=== PATIENT | male | born 1950 | race Caucasian/White ===

== ENCOUNTER 2021-10-19 01:49 | Emergency (ER) | payer OTHER ==
[~2021-10-19] VITALS: Ht 170.2 cm; Wt 91.4 kg
--- NOTE | 2021-10-19 02:16 | PHYS DOC ---
Past History Past Surgical History: Other Adult General Chief Complaint Chief Complaint: MECHANICAL FALL HPI HPI Patient is a 71-year-old male with a past medical history of Parkinson's who presents the emergency department with his after slipping in the bathtub an d sliding down the wall landing in the corner. states she was in there with him and he did not lose consciousness and was able to help get them out. States he is able to walk at baseline. States she is worried he hit his head. Patient is nonverbal but shakes his head yes and no. Denies any pain. Denies any numbness/weakness/tingling. Review of Systems Review of Systems Review of systems otherwise unremarkable except noted in HPI Allergies Allergies Allergies Coded Allergies Type Severity Reaction Last Updated Verified No Known Drug Allergies 10/19/21 No Physical Exam Physical Exam Constitutional: Well developed, well nourished, no acute distress, non-toxic appearance. [] HENT: Normocephalic, atraumatic, oropharynx moist, no oral exudates, nose normal. [] Eyes: PERRLA, EOMI, conjunctiva normal, no discharge. [] Cardiovascular:Heart rate regular rhythm, no murmur [] Lungs & Thorax: Bilateral breath sounds clear to auscultation [] Abdomen: Bowel sounds normal, soft, no tenderness, no masses, no pulsatile masses. [] Skin: Warm, dry, no erythema, no rash. [] Back: No midline tenderness throughout spine with no paraspinal muscle tenderness or spasm, no step-offs, deformities or bruising noted Extremities: No tenderness, no cyanosis, no clubbing, ROM intact, no edema. [] Neurologic: Alert and oriented X 3, normal motor function, normal sensory function, able to sit, stand and walk at baseline per no focal deficits noted. [] Psychologic: Affect normal, judgement normal, mood normal. [] Current Patient Data Vital Signs Vital Signs Date Time Temp Pulse Resp B/P (MAP) Pulse Ox O2 Delivery O2 Flow Rate FiO2 10/19/21 01:56 98.2 89 111/55 (73) 90 EKG EKG [] Radiology/Procedures Radiology/Procedures [] Heart Score C/O Chest Pain: No Risk Factors: Risk Factors: DM, Current or recent (<one month) smoker, HTN, HLP, family history of CAD, obesity. Risk Scores: Risk Factors: DM, Current or recent (<one month) smoker, HTN, HLP, family history of CAD, obesity. Course & Med Decision Making Course & Med Decision Making Patient is a 71-year-old male who presents after slipping in the bathtub, and hitting his head Vital signs nonconcerning. Physical exam noted above. Denied Tylenol or ibuprofen needed Laboratory analysis notable for mild hyponatremia and mild hyperkalemia. Per family patient is chronically hyponatremic. Imaging with no acute osseous abnormality. Discussed all findings with family. Advised on nutrition. Advised that he should not probably be alone especially over the next few days. Advised to follow-up in the morning with primary care physician to set up an immediate follow-up Gave return precautions to the ED. Family grateful, verbalized understanding and agreed with plan of discharge. [] Dragon Disclaimer Dragon Disclaimer This electronic medical record was generated, in whole or in part, using a voice recognition dictation system. Departure Departure: Impression: Primary Impression: Fall Disposition: 01 HOME / SELF CARE / HOMELESS Condition: GOOD Referrals: PCP,UNKNOWN (PCP) ALONDRA DANG MD Patient Instructions: Fall Prevention and Home Safety, Hyponatremia Additional Instructions: Fever coming into the emergency department tonight and allowing us to take care of you. Please read the attached information carefully to go over things we discussed. Please be sure to contact, primary care physician first thing in the morning to update on ED visit and set up a follow-up as soon as to discuss your diagnosis of falls and low sodium.. Please be sure to eat at least 3 nutritious meals a day and drink plenty of fluid. Please come back with new or concerning symptoms as discussed ALLA MANRIQUEZ MD Oct 19, 2021 02:16
--- NOTE | 2021-10-19 02:34 | EKG ---
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
[2021-10-19 02:58] LABS: BASO # 0.1 x10^3/uL (0.0-0.2); BASO % 1 % (0-3); EOS % 0 % (0-3); HEMATOCRIT 42.8 % (39.0-53.0); HEMOGLOBIN 14.5 g/dL (13.0-17.5); LYMPH # 1.4 x10^3/uL (1.0-4.8); LYMPH % 9 % (24-48); MEAN CORPUSCULAR HEMOGLOBIN 31 pg (25-35); MEAN CORPUSCULAR HGB CONC 34 g/dL (31-37); MEAN CORPUSCULAR VOLUME 91 fL (79-100); MONO # 2.4 x10^3/uL (0.0-1.1); MONO % 16 % (0-9); NEUT # 11.3 x10^3uL (1.8-7.7); NEUT % 74 % (31-73); PLATELET COUNT 251 x10^3/uL (140-400); RED CELL DISTRIBUTION WIDTH 13.1 % (11.5-14.5); WHITE BLOOD COUNT 15.3 x10^3/uL (4.0-11.0)
[2021-10-19 03:05] LABS: CALCIUM 8.6 mg/dL (8.5-10.1); CREATININE 1.1 mg/dL (0.7-1.3); GFR 65.8; POTASSIUM 5.4 mmol/L (3.5-5.1)
--- NOTE | 2021-10-19 03:50 | RAD ---
CT HEAD AND C-SPINE WO History: Reason: Fall in bathtub. Hx: Parkinsons, difficulty holding still / Spl. Instructions: / Hi story: Comparison: None. Technique: Noncontrast CT imaging was performed of the head and cervical spine. Coronal and sagittal reconstructions were performed. Exposure: One or more of the following individualized dose reduction techniques were utilized for thi s examination: 1. Automated exposure control 2. Adjustment of the mA and/or kV according to patient size 3. Use of iterative reconstruction technique. Findings: Head CT: No intracranial hemorrhage. No mass effect. No hydrocephalus. Moderate brain parenchymal vo lume loss. Mild foci of decreased attenuation within the hemispheric white matter, most often due to chronic microvascular ischemia. Imaged orbits are unremarkable. Imaged paranasal sinuses and mastoid air cells are clear. No acute ca lvarial fracture. Cervical spine CT: Straightening of the cervical spine. No acute fracture. Moderate degenerative disc changes most prominent C3-C4 and C4-C5. 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 Mild multilevel canal narrowing. Multilevel neuroforaminal elisabet rowing. Soft tissues unremarkable. Impression: Head CT: 1. No acute intracranial abnormality. Cervical spine CT: 1. No acute fracture or subluxation of the cervical spine. 2. Moderate cervical spondylosis with ossification of posterior longitudinal ligament contributing t o canal and neuroforaminal narrowing. Electronically signed by: Wenceslao Lopez DO (10/19/2021 3:48 AM) [facility]
--- NOTE | 2021-10-19 04:01 | RAD ---
CT CHEST AND ABDOMEN WITHOUT CONTRAST History: Fall. Pain. Technique: CT of the chest, abdomen and pelvis were performed without contrast. Coronal and sagittal reconstructions were performed. Exposure: One or more of the following individualized dose reduction techniques were utilized for thi s examination: 1. Automated exposure control 2. Adjustment of the mA and/or kV according to patient size 3. Use of iterative reconstruction technique. Comparison: None Findings: Chest: No pathologic lymphadenopathy. Coronary artery calcifications. Mild atheromatous plaque within the aorta. Bilateral lower lobe linear atelectasis. No pleural effusion. No pneumothorax. Mild rich eptal emphysema. 2 medial left upper lobe pulmonary nodule (series 2 image 45). 2 mm right upper lobe pulmonary nodule s (image 41 and 47). Abdomen and pelvis: The liver, spleen, adrenal glands, and pancreas are unremarkable. Cholelithiasis. No renal calculus. No hydronephrosis. Left renal cyst measures 4.5 cm. Distended urinary bladder. Pr ostamegaly. Mild colonic diverticulosis. Moderate stool-filled colon. Appendix is not well seen. No evidence of b owel obstruction. No pathologic lymphadenopathy. No ascites. Bilateral fat-containing inguinal hernia s. Inferior abdominal wall anterior fat-containing hernia. Extensive atheromatous plaque throughout t he nonaneurysmal abdominal aorta and branch vessels. 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 Mild bilateral hip DJD. Mild the thoracolumbar spo ndylosis. Impression: Chest CT: 1. No acute thoracic pathology. 2. Bilateral lower lobe linear atelectasis. 3. Small pulmonary nodules. Recommend one-year follow-up chest CT without contrast. Abdomen and pelvis CT: 1. No acute abdominal or pelvic pathology. 2. Cholelithiasis. Electronically signed by: Wenceslao Lopez DO (10/19/2021 3:59 AM) [facility]
[2021-10-19 04:20] VITALS: BP 167/81
[2021-10-19 04:59] LABS: % BANDS 9 % (0-9); % EOS 1 % (0-5); % LYMPHS 7 % (24-48); % MONOS 6 % (0-10); % SEGS 77 % (35-66); PLT ESTIMATE ADEQUATE (ADEQUATE)
== END 2021-10-19 04:20 | disposition home or self-care (01) ==
LOC: ER 01:49
DX: Z04.3 Encounter for examination and observation following other accident (principal); R51.9 Headache, unspecified; W18.2XXA Fall in (into) shower or empty bathtub, initial encounter; Y93.89 Activity, other specified; Y92.89 Other specified places as the place of occurrence of the external cause; Y99.8 Other external cause status
CPT/HCPCS: 36415; 70450; 71250; 72125; 74150; 80048; 84484; 85007; 85025; 93005; 99285